=== PATIENT | female | born 1950 | race Caucasian/White ===

== ENCOUNTER 2021-04-05 08:40 | Outpatient (RCR) | payer MEDICARE, OTHER, SELFPAY ==
--- NOTE | 2021-04-05 09:59 | PTOPEVAL ---
Thank you for referring Emma Webb to [facility].? The patient is scheduled to be seen for therapy? ____x/week for ___ weeks. Please review, sign, date and return this plan of care TERRY. I agree with and certify that the following plan of care is medically necessary. Referring Physician Date Admitting Provider: Attending Provider: Miah Murray Referring Provider: RAFAEL Outpatient Evaluation Start: 04/05/21 09:03 Freq: Status: Active Protocol: Document 04/05/21 09:03 [facility] (Rec: 04/05/21 09:59 [facility] [id number]) Therapy Assessment Status Assessment Status Assessment Status Evaluation Evaluation Information Problem Diagnosis lumbar radiculopathy Onset 01/06/21 Additional Evaluation Detail oswestry = 72% functionally declined Subjective Information patient reports she had back Query Text:As Reported By Patient/ surgery about 1.5 years ago. Family she reports she was doing well until this summer when she pulled a bunch of weeds at home. she reports she has been limited since. she reports xrays reveal no changes in the surgical repair. she reports she had some radiation of pain down the back of the leg, but reports no her pain just moves around every day. she reports she has increased pain with sitting and sleeping. she reports movement decreases her pain. Prior Level of Function Comments Additional Prior Level of Function patient reports prior to Comments january she was doing well. she reports she is now struggling to participate in any home or recreational activities. 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 Pain Assessment Timing of Pain Assessment Timing of Pain Assessment Assessment Pain Scale Pain Scale Used Numeric (1 - 10) Self Report Pain Assessment Lower Back Reported Pain Level 9 Pain Score Pain Score 9: Self Report Interventions Used Interventions Used By Clinicians Heat,Medication,Rest Cervical and Lumbar ROM Lumbar ROM Lumbar Flexion Active Knee Query Text:Hands to: Lumbar Extension (0-40) 30 Query Text:Active in D
--- NOTE | 2021-04-29 09:18 | PTOPEVAL ---
Thank you for referring Emma Webb to [facility].? The patient is scheduled to be seen for therapy? ____x/week for ___ weeks. Please review, sign, date and return this plan of care TERRY. I agree with and certify that the following plan of care is medically necessary. Referring Physician Date Admitting Provider: Attending Provider: Miah Murray Referring Provider: RAFAEL Outpatient Evaluation Start: 04/05/21 09:03 Freq: Status: Active Protocol: Document 04/29/21 08:20 [facility] (Rec: 04/29/21 09:17 [facility] [id number]) Therapy Assessment Status Assessment Status Assessment Status Progress Evaluation Information Problem Diagnosis lumbar radiculopathy Onset 01/06/21 Subjective Information patient reports she feels Query Text:As Reported By Patient/ Alright this date. she Family reports her pain feels like a dull ache today. she reports she was feeling pretty good after her last therapy visit last week. however, she was out running her dogs all weekend and is now sore again today. Pain Assessment Timing of Pain Assessment Timing of Pain Assessment Assessment Pain Scale Pain Scale Used Numeric (1 - 10) Self Report Pain Assessment Lower Back Reported Pain Level 4 Pain Score Pain Score 4: Self Report Interventions Used Interventions Used By Clinicians Activity or ADL's,Dry Needling ,Education,Electrical Stimulation,Exercise,Heat, Manual Therapy Techniques, Traction Cervical and Lumbar ROM Lumbar ROM Lumbar Flexion Active Ankle Query Text:Hands to: Lumbar Extension (0-40) 40 Query Text:Active in Degrees Lumbar Lateral Flexion Right (0-40) 30 Query Text:Active in Degrees Lumbar Lateral Flexion Left (0-40) 30 Query Text:Active in Degrees Lumbar Comments increased pain with R sidebending and forward flexion Lower Extremity Muscle Strength Testing Hip Strength Bilateral Hip Flexion Strength 4+ Good + Hip Abduction Strength 4+ Good + Muscle Length Testing Muscle Length Testing Left Hamstring Length 15 Query Text:(90 - 90 Position) Right Hamstring Length 15 Query Text:(90 - 90 Position) Palpation Assessment Palpation Palpation patient reports tenderness to palpation of th
--- NOTE | 2021-04-30 08:51 | PTOPEVAL ---
Thank you for referring Emma Webb to [facility].? The patient is scheduled to be seen for therapy? ____x/week for ___ weeks. Please review, sign, date and return this plan of care TERRY. I agree with and certify that the following plan of care is medically necessary. Referring Physician Date Admitting Provider: Attending Provider: Miah Murray Referring Provider: RAFAEL Outpatient Evaluation Start: 04/05/21 09:03 Freq: Status: Active Protocol: Document 04/30/21 08:00 [facility] (Rec: 04/30/21 08:51 [facility] [id number]) Therapy Assessment Status Assessment Status Assessment Status Progress Evaluation Information Problem Diagnosis lumbar radiculopathy Onset 01/06/21 Subjective Information patient reports she feels a Query Text:As Reported By Patient/ bit worse this date. she Family reports liking traction after her first treatment, but reports after the 2nd treatment she has now began having pain down the R LE. patient reports she would like to get an MRI of the lumbar spine. Pain Assessment Timing of Pain Assessment Timing of Pain Assessment Assessment Pain Scale Pain Scale Used Numeric (1 - 10) Self Report Pain Assessment Lower Back Reported Pain Level 5 Pain Radiation Right Leg Pain Score Pain Score 5: Self Report Interventions Used Interventions Used By Clinicians Activity or ADL's,Dry Needling ,Education,Electrical Stimulation,Exercise,Heat, Manual Therapy Techniques, Traction Cervical and Lumbar ROM Lumbar ROM Lumbar Flexion Active Ankle Query Text:Hands to: Lumbar Extension (0-40) 40 Query Text:Active in Degrees Lumbar Lateral Flexion Right (0-40) 30 Query Text:Active in Degrees Lumbar Lateral Flexion Left (0-40) 30 Query Text:Active in Degrees Lumbar Comments increased pain with forward flexion and R sidebending. patient reports increased pain at half way down and coming up from full flexion. patient returns to standing from forward fleixon by bending knees, and pushing up with hands on knees. Cervical and Lumbar Muscle Testing Lumbar Strength Upper Abdominal Strength
== END 2021-04-30 13:29 | disposition home or self-care (01) ==
LOC: CHSPT 08:40
DX: M54.50 Low back pain, unspecified (principal); M54.16 Radiculopathy, lumbar region
CPT/HCPCS: 97012; 97014; 97110; 97140; 97161; 97164; G0283

== ENCOUNTER 2022-06-20 09:23 | Emergency (ER) | payer MEDICARE, OTHER, SELFPAY ==
--- NOTE | ~2022-06-20 | XR_ITS ---
EXAMINATION: XR chest 2V DATE: 06/20/2022 10:02 INDICATION: Cough. Shortness of breath. Chest tightness. TECHNIQUE: Frontal and lateral views of the chest were obtained. COMPARISON: None. FINDINGS: The lungs are hyperexpanded, consistent with chronic obstructive pulmonary disease. There i s a 3 cm mass in right midlung zone. No pleural effusion or pneumothorax. The heart size is normal. IMPRESSION: 1. Mass in right midlung zone suspicious for primary bronchogenic carcinoma. Chest CT without contras t is recommended. I called this result to Schuyler Merino. Reviewed, dictated and finalized at location A. SKILLS EDUCATOR IMPRESSION: 1. Mass in right midlung zone suspicious for primary bronchogenic carcinoma. est CT without contrast is recommended. I called this result to Schuyler null.
--- NOTE | 2022-06-20 09:28 | ED.URI ---
HPI - URI/Sore Throat General Chief Complaint: Upper Respiratory Infection Stated Complaint: bodyache,sob,cough Time Seen by Provider: 06/20/22 09:29 Source: patient Mode of arrival: ambulatory Limitations: no limitations History of Present Illness HPI Narrative: Emma is a 72-year-old female patient presenting to the clinic today with complaints of body aches, shortness of breath, and cough since last night. She reports shortness of breath is a 7/10 currently. Cough is nonproductive. She denies any no fever or chills. 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 States that they did a heart catheterization on her and that came back clean. She was not put on any medications after having this heart attack besides a baby aspirin. She takes cholesterol medication. She denies any known exposure to anybody with COVID, flu, or strep. She does report having some chest pressure/heaviness. MD elicited complaint: cough and nasal congestion Related Data Home Medications Medication Instructions Recorded Confirmed Aspir-81 81 mg PO DAILY 06/20/22 06/20/22 simvastatin 40 mg tablet 40 mg PO DAILY 06/20/22 06/20/22 Allergies Allergy/AdvReac Type Severity Reaction Status Date / Time erythromycin base AdvReac Intermediate Nausea and Verified 06/20/22 09:45 Vomiting Penicillins AdvReac Mild Hives Verified 06/20/22 09:45 Review of Systems Review of Systems: Pertinent positives per HPI. Patient denies any fever, chills, rash, headache, visual changes, dizziness, chest pain, palpitations, nausea, vomiting, diarrhea, constipation, abdominal pain, or any urinary issues. PMFSH Comments At the time of my signature, I reviewed and agree with the nursing past medical, surgical, social, and family history. There is no relevant family history pertinent to the patient complaint. Exam Narrative: General: Well-developed, well nourished, in no apparent distress Head: Normocephalic, atraumatic Eyes: Pupils equally round and reactive to light bilaterally, EOM intact, sclera and conjunctive clear, no discharge, lids normal Ears: TMs intact and clear, ear canals clear, no drainage, grossly hearing normal. Nose: Nares patent, clear has discharge, no inflammation, no sinus tenderness. Mouth: Oral pharynx without lesions or masses, good dentition, MMM. Neck: Supple, trachea midline, no enlargement of anterior or posterior cervical nodes, no thyroid masses or goiter palpable. Cardio: Regular rate and rhythm, s1 and s2 normal, no murmur appreciated. Resp: Diminished lung sounds in the bases otherwise clear, no rhonchi, rales, wheezing or rubs Course Course Emergency Course: Portions of this record may have been created with voice recognition software. Level of Care: Express Care Visit Vital Signs Vital signs: Vital Signs Temperature 36.7 C 06/20/22 09:39 Pulse Rate 51 L 06/20/22 09:39 Respiratory Rate 20 06/20/22 09:39 Blood Pressure 127/41 L 06/20/22 09:39 Pulse Oximetry 98 06/20/22 09:39 Oxygen Delivery Room Air 06/20/22 09:39 Temperature 36.7 C 06/20/22 09:39 Pulse Rate 51 L 06/20/22 09:39 Respiratory Rate 20 06/20/22 09:39 Blood Pressure 127/41 L 06/20/22 09:39 Pulse Oximetry 98 06/20/22 09:39 Oxygen Delivery Room Air 06/20/22 09:39 Vital signs reviewed Transfer Transfered to: [facility] Transportation: Other (Private car) Transfer rationale: Shortness of breath, chest pressure, right lung mass-right mid lung, body aches Accepting physician: Agustin Palmer Transfer comments: Transfer via private car by patient's daughter MDM - URI/Sore Throat MDM Narrative Medical decision making narrative: At the time of visit patient is resting comfortably on the exam table. Influenza and COVID testing was negative in the clinic today. Patient rating her shortness of breath and chest pressure at 7 at the 10 currently. EKG was performed shows sinus rhythm
[2022-06-20 09:39] VITALS: BP 127/41; PULSE 51; RESP 20; TEMP 36.7; O2SAT 98
--- NOTE | 2022-06-20 10:06 | ECG_ITS ---
Measurements Intervals [place] Rate: 96 P: 83 MN: 164 QRS: 66 QRSD: 89 T: 30 QT: 329 QTc: 416 Interpretive Statements SINUS RHYTHM FREQUENT VENTRICULAR PREMATURE COMPLEXES POSSIBLE RIGHT ATRIAL ENLARGEMENT LEFT ATRIAL ENLARGEMENT RSR' IN V1 OR V2, PROBABLY NORMAL VARIANT DELAYED PRECORDIAL R/S TRANSITION NONSPECIFIC ST & T-WAVE ABNORMALITY- INFERIOR LEADS ABNORMAL ECG NO PREVIOUS ECG AVAILABLE FOR COMPARISON Electronically Signed On 06-20-2022 10:20:22 [employer]OR[employer]UE TECHNICIAN by Eric Mitchell D.O.
== END 2022-06-20 10:30 | disposition short-term general hospital (02) ==
PROVIDERS: Emergency Provider Nurse Practitioner Family; PCP Family Medicine
DX: R06.02 Shortness of breath (principal); R07.89 Other chest pain; I49.3 Ventricular premature depolarization; R91.8 Other nonspecific abnormal finding of lung field; Z20.822 Contact with and (suspected) exposure to COVID-19; Z79.82 Long term (current) use of aspirin; I25.2 Old myocardial infarction
CPT/HCPCS: 71046; 87426; 87804; 93005; 99213; C9803; G0463

== ENCOUNTER 2023-08-05 08:47 | Outpatient (RCR) | payer MEDICARE, OTHER, SELFPAY ==
--- NOTE | 2023-08-07 08:24 | BUOTOPEVAL ---
Assessment and note entered by Mary Padron, OT Evaluation Information Assessment Status Evaluation Diagnosis Trigger finger Onset 07/24/2023 Subjective Information The patient reports she wants function back in her L hand. She stated that her L hand middle finger is stiff and tender after taking wrap off approximately 07/31 following trigger finger release surgery. She reports R hand ring finger has scar buildup and L hand has been painful and needs increased strength and mobility. She reports no numbness/tingling. Reported Pain Level Pain Score 4: Self Report Pain Score 0: Self Report Assessment OT Clinical Summary The patient is a 73 year old female who was referred to outpatient OT due to trigger finger release. 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 The patient now demonstrates minimally impaired bar staff strength of L hand, L limited AROM of digits, pain in L hand and stiffness in R hand at base of finger due to scar buildup. The patient requires skilled OT to address deficits and return to PLOF increasing function of hands. Plan of Care Interventions Therapeutic Exercise,Manual Therapy,Neuro Re- education,Therapeutic Activities,Hot Pack/Cold Pack,Electrical Stimulation,Self-Care/Home Management,Check Out for Orthotic/Pr,Ultrasound OT Services Indicated Yes Treatment Frequency and 2x/week for 10 visits. Duration These treatments will address the objective and functional deficits as defined above. The patient will be advanced safely and appropriately in order for the patient to progress towards his/her prior level of function. Additional exercises will be introduced and as well as a comprehensive home exercise program upon discharge, if needed, ?to ensure carryover of functional gains achieved in the clinic. This treatment plan has been reviewed and agreement upon by the patient.
--- NOTE | 2023-08-21 09:38 | OTOPDC ---
Assessment and note entered by Mary Padron OT Evaluation Information Assessment Status Discharge Subjective Information The patient reports no pain in B hands and no signs of numbness/tingling. She reports she is working on her hand at home and thinks she is ready to continue with therapy using HEP. Reported Pain Level Pain Score 0: Self Report Assessment OT Clinical Summary The patient demonstrates significant progress in digit AROM, building economist strength, pinch strength and pain symptoms that have increased her ability to use B hands for daily tasks. The patient demonstrates decreased scar buildup on R hand and improvement in mobility of L hand. She scored 9.1% on QuickDASH at discharge demonstrating significant improvement in mobility and function of hands. The patient is discharged this date with HEP due to meeting goals and being independent with completion of HEP. Plan of Care OT Services Indicated No
== END 2023-08-21 15:30 | disposition home or self-care (01) ==
LOC: CHSOT 08:47
DX: M65.332 Trigger finger, left middle finger (principal); M65.331 Trigger finger, right middle finger; M65.341 Trigger finger, right ring finger
CPT/HCPCS: 97035; 97110; 97140; 97165; 97530